=== PATIENT | female | born 1995 ===

== ENCOUNTER 2018-08-05 05:06 | Inpatient (IN) | payer OTHER ==
[~2018-08-05] VITALS: Ht 154.9 cm; Wt 2.7 kg
[2018-08-05] MEDS ORDERED: PRENATAL TABLE1 EACH PO (05:37)
== END 2018-08-08 12:52 | DRG 788 ==
LOC: OBS/DEL 05:06 → OB/GYN 08:20 → LDR 08:20 → O/R 13:30 → OB/GYN 15:35
PROVIDERS: ADMIT Specialist
PROC: 4A1HXCZ Monitoring of Products of Conception, Cardiac Rate, External Approach (ICD-10-PCS; 2018-08-05)
PROC: 4A033R1 Measurement of Arterial Saturation, Peripheral, Percutaneous Approach (ICD-10-PCS; 2018-08-05)
PROC: 10D00Z1 Extraction of Products of Conception, Low, Open Approach (ICD-10-PCS; principal; 2018-08-05 13:00)
DX: O76 Abnormality in fetal heart rate and rhythm complicating labor and delivery (principal); Z3A.39 39 weeks gestation of pregnancy; Z37.0 Single live birth